=== PATIENT | female | born 1980 | race Two or more races ===

== ENCOUNTER 2020-05-08 01:10 | Emergency (ER) | payer OTHER ==
[~2020-05-08] VITALS: Ht 154.9 cm; Wt 68.0 kg
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
[2020-05-08] MEDS ORDERED: HYDROMORPHONE 1 MG/1 ML DISP.SYRIN IV ONE (01:30)
[2020-05-08] MEDS ORDERED: ONDANSETRON 4 MG/2 ML VIAL IV ONE (01:30)
[2020-05-08] MEDS ORDERED: IV NORMAL SALINE 1000 ML BAG IV ONE (01:30)
[2020-05-08] MEDS ORDERED: ONDANSETRON 4 MG/2 ML VIAL ONE (01:40)
[2020-05-08] MEDS ORDERED: HYDROMORPHONE 1 MG/1 ML DISP.SYRIN ONE (01:40)
[2020-05-08 01:56] LABS: ALANINE AMINOTRANSFERASE 37 U/L (14-59); ALKALINE PHOSPHATASE 148 U/L (50-136); ASPARTATE AMINOTRANSFERASE 19 U/L (15-37); BILIRUBIN,DIRECT 0.1 mg/dL (0.0-0.2); BILIRUBIN,TOTAL 0.3 mg/dL (0.2-1.0); CARBON DIOXIDE 27 mmol/L (21-32); CHLORIDE 101 mmol/L (98-107); CREATININE 0.8 mg/dL (0.6-1.3); GLUCOSE 140 mg/dL (74-106); LIPASE 496 U/L (73-393); POTASSIUM 4.3 mmol/L (3.5-5.1); UREA NITROGEN, BLOOD 14 mg/dL (7-18)
[2020-05-08 02:00] LABS: BASOPHILS % (AUTO) 0.3 % (0.0-2.0); EOSINOPHILS # (AUTO) 0.5 K/uL (0.0-0.7); EOSINOPHILS % (AUTO) 6.6 % (0.0-7.0); HEMATOCRIT 33.5 % (31.2-41.9); HEMOGLOBIN 11.6 g/dL (10.9-14.3); LYMPHOCYTES % (AUTO) 28.5 % (20.5-51.5); MEAN CORPUSCULAR HEMOGLOBIN 34.6 uug (24.7-32.8); MEAN CORPUSCULAR HGB CONC 35 g/dL (32.3-35.6); MEAN CORPUSCULAR VOLUME 100.2 fL (75.5-95.3); MONOCYTES # (AUTO) 0.9 K/uL (2.0-10.0); MONOCYTES % (AUTO) 12.7 % (0.0-11.0); NEUTROPHILS # (AUTO) 3.6 K/uL (1.8-8.9); NEUTROPHILS % (AUTO) 51.9 % (38.5-71.5); PLATELET COUNT (AUTO) 151 K/uL (179-408); RED BLOOD CELL COUNT(AUTO) 3.34 MIL/uL (3.63-4.92); WHITE BLOOD COUNT (AUTO) 6.9 K/uL (3.8-11.8)
--- NOTE | 2020-05-08 02:25 | NUR ---
pt to CT
--- NOTE | 2020-05-08 02:30 | NUR ---
pt back from CT
--- NOTE | 2020-05-08 02:49 | NUR ---
urine sent to lab
[2020-05-08 02:56] LABS: *BILIRUBIN,URIN NEGATIVE (NEGATIVE); *BLOOD, URINE NEGATIVE (NEGATIVE); *CLARITY,URINE CLEAR (CLEAR); *COLOR,URINE YELLOW (YELLOW); *KETONES,URINE NEGATIVE (NEGATIVE); *UROBILINOGEN,URINE 0.2 E.U./dl (NORMAL); LEUKOCYTE ESTERASE ,URINE NEGATIVE (NEGATIVE); NITRITE, URINE NEGATIVE (NEGATIVE); PH,URINE 7.5 (5.0-8.0); UGLUCOSE NEGATIVE (NEGATIVE)
--- NOTE | 2020-05-08 03:10 | NUR ---
Patient given written and verbal discharge instructions. Patient verbalizes understanding of instructions. Patient is ambulatory with steady gait. Patient states she lives in a hotel. Patient given list of available shelters in surrounding area. IV dc'd noted with tip intact. Left ER in stable condition. Addendum: 05/08/20 at 0311 by CYRUS Pt refused discharge vital signs
[2020-05-08 03:24] LABS: *AMPHETAMINE, URINE NEGATIVE (NEGATIVE); *CANNABINOID, URINE POSITIVE (NEGATIVE); *COCCAINE, URINE NEGATIVE (NEGATIVE); *OPIATE, URINE POSITIVE (NEGATIVE); *PHENCYCLIDINE SCREEN,URINE NEGATIVE (NEGATIVE)
== END 2020-05-08 03:12 | disposition home or self-care (01) ==
LOC: ER 01:18
DX: R10.2 Pelvic and perineal pain (principal); K40.90 Unilateral inguinal hernia, without obstruction or gangrene, not specified as recurrent; N20.0 Calculus of kidney; F17.210 Nicotine dependence, cigarettes, uncomplicated; M35.00 Sjogren syndrome, unspecified; E11.9 Type 2 diabetes mellitus without complications; Z90.49 Acquired absence of other specified parts of digestive tract
CPT/HCPCS: 36415; 74176; 80048; 80076; 80307; 81003; 83690; 84702; 85025; 87086; 96361; 96374; 96375; 99284; J1170; J2405; A4663

== ENCOUNTER 2020-05-10 17:25 | Emergency (ER) | payer OTHER ==
[~2020-05-10] VITALS: Ht 154.9 cm; Wt 68.0 kg
--- NOTE | 2020-05-10 17:47 | NUR ---
Patient discharged to home in stable condition with brisk steady gait. Verbal after care instructions given to patient by MD. Patient verbalized understanding and compliance of instructions. Stressed follow up with her primary doctor or return to ER for worsening s/s.
== END 2020-05-10 17:48 | disposition home or self-care (01) ==
LOC: ER 17:26
DX: E11.9 Type 2 diabetes mellitus without complications (principal); Z76.0 Encounter for issue of repeat prescription; Z79.4 Long term (current) use of insulin; F17.210 Nicotine dependence, cigarettes, uncomplicated; M35.00 Sjogren syndrome, unspecified
CPT/HCPCS: A4663

== ENCOUNTER 2020-05-17 23:46 | Emergency (ER) | payer OTHER ==
[~2020-05-17] VITALS: Ht 154.9 cm; Wt 68.0 kg
[2020-05-18 00:10] LABS: BASOPHILS % (AUTO) 0.8 % (0.0-2.0); EOSINOPHILS # (AUTO) 0.2 K/uL (0.0-0.7); HEMATOCRIT 35.2 % (31.2-41.9); HEMOGLOBIN 12.7 g/dL (10.9-14.3); LYMPHOCYTES # (AUTO) 1.8 K/uL (20.0-40.0); MEAN CORPUSCULAR HEMOGLOBIN 36.5 uug (24.7-32.8); MEAN CORPUSCULAR HGB CONC 36 g/dL (32.3-35.6); MEAN CORPUSCULAR VOLUME 101.3 fL (75.5-95.3); MONOCYTES # (AUTO) 0.8 K/uL (2.0-10.0); MONOCYTES % (AUTO) 13.3 % (0.0-11.0); NEUTROPHILS % (AUTO) 51.9 % (38.5-71.5); PLATELET COUNT (AUTO) 201 K/uL (179-408); RED BLOOD CELL COUNT(AUTO) 3.48 MIL/uL (3.63-4.92); WHITE BLOOD COUNT (AUTO) 5.9 K/uL (3.8-11.8)
[2020-05-18 00:14] LABS: CREATININE 0.9 mg/dL (0.6-1.3); POTASSIUM 2.9 mmol/L (3.5-5.1)
[2020-05-18] MEDS ORDERED: LORAZEPAM 0.5 MG TABLET PO ONE (00:15)
[2020-05-18] MEDS ORDERED: ACETAMINOPHEN 325 MG TABLET PO ONE (00:15)
[2020-05-18 00:20] LABS: BILIRUBIN,DIRECT 0.1 mg/dL (0.0-0.2); BILIRUBIN,TOTAL 0.3 mg/dL (0.2-1.0); TOTAL PROTEIN, SERUM 7.4 g/dL (6.4-8.2)
[2020-05-18 00:20] LABS: *URINE HCG, QUAL NEGATIVE (NEGATIVE)
[2020-05-18] MEDS ORDERED: LORAZEPAM 1 MG TABLET ONE (00:20)
[2020-05-18] MEDS ORDERED: ACETAMINOPHEN 325 MG TABLET ONE (00:20)
[2020-05-18] MEDS ORDERED: POTASSIUM CHLORIDE 20 MEQ TAB.PRT.SR PO ONE (00:30)
[2020-05-18] MEDS ORDERED: ACET-2154 PO (00:30)
[2020-05-18] MEDS ORDERED: POTASSIUM CHLORIDE 20 MEQ TAB.PRT.SR ONE (00:39)
[2020-05-18 00:43] VITALS: BP 116/77
--- NOTE | 2020-05-18 00:43 | NUR ---
IV removed. Catheter intact and site benign. Pressure and 4x4 gauze applied to site. No bleeding noted.
--- NOTE | 2020-05-18 00:43 | NUR ---
Patient discharged to home in stable condition. Written and verbal after care instructions given. Patient verbalizes understanding of instructions. Stressed follow up or return to ER for worsening s/s. Patient is taking a [employer] home.
== END 2020-05-18 00:44 | disposition home or self-care (01) ==
LOC: ER 23:49
DX: R07.9 Chest pain, unspecified (principal); I45.10 Unspecified right bundle-branch block; E11.9 Type 2 diabetes mellitus without complications; M35.00 Sjogren syndrome, unspecified; F17.210 Nicotine dependence, cigarettes, uncomplicated
CPT/HCPCS: 36415; 70030-TC; 71045; 84703; 85025; 93005

== ENCOUNTER 2020-07-02 00:22 | Emergency (ER) | payer MEDICAID, OTHER ==
[~2020-07-02] VITALS: Ht 154.9 cm; Wt 72.6 kg
[~2020-07-02 00:22] MED LIST: ACET-2154 PO
--- NOTE | 2020-07-02 00:49 | NUR ---
Dr. Melendez at bedside for MSE
[2020-07-02] MEDS: IV NORMAL SALINE 1000 ML BAG IV ONE (01:00)
[2020-07-02] MEDS: KETOROLAC TROMETHAMINE 30 MG INJ IVP ONE (01:11)
[2020-07-02] MEDS: METOCLOPRAMIDE HCL 10 MG/2 ML VIAL IV ONE (01:13)
[2020-07-02] MEDS ORDERED: METOCLOPRAMIDE HCL 10 MG/2 ML VIAL ONE (01:15)
[2020-07-02] MEDS ORDERED: KETOROLAC TROMETHAMINE 30 MG INJ ONE (01:15)
[2020-07-02] MEDS: diphenhydrAMINE 50 MG/1 ML VIAL IM ONE (01:15)
[2020-07-02] MEDS ORDERED: diphenhydrAMINE 50 MG/1 ML VIAL ONE (01:15)
[2020-07-02 01:32] LABS: BASOPHILS % (AUTO) 0.7 % (0.0-2.0); EOSINOPHILS # (AUTO) 0.2 K/uL (0.0-0.7); EOSINOPHILS % (AUTO) 2.8 % (0.0-7.0); HEMATOCRIT 39.3 % (31.2-41.9); HEMOGLOBIN 13.5 g/dL (10.9-14.3); LYMPHOCYTES # (AUTO) 2.1 K/uL (20.0-40.0); LYMPHOCYTES % (AUTO) 28.9 % (20.5-51.5); MEAN CORPUSCULAR HEMOGLOBIN 32.8 uug (24.7-32.8); MEAN CORPUSCULAR HGB CONC 34 g/dL (32.3-35.6); MEAN CORPUSCULAR VOLUME 95.9 fL (75.5-95.3); MONOCYTES # (AUTO) 0.8 K/uL (2.0-10.0); MONOCYTES % (AUTO) 10.7 % (0.0-11.0); NEUTROPHILS # (AUTO) 4.1 K/uL (1.8-8.9); NEUTROPHILS % (AUTO) 56.9 % (38.5-71.5); PLATELET COUNT (AUTO) 134 K/uL (179-408); WHITE BLOOD COUNT (AUTO) 7.2 K/uL (3.8-11.8)
[2020-07-02 01:36] LABS: *BILIRUBIN,URIN NEGATIVE (NEGATIVE); *BLOOD, URINE NEGATIVE (NEGATIVE); *CLARITY,URINE CLEAR (CLEAR); *COLOR,URINE YELLOW (YELLOW); *KETONES,URINE NEGATIVE (NEGATIVE); *UROBILINOGEN,URINE 0.2 E.U./dl (NORMAL); LEUKOCYTE ESTERASE ,URINE NEGATIVE (NEGATIVE); NITRITE, URINE NEGATIVE (NEGATIVE); UGLUCOSE NEGATIVE (NEGATIVE)
[2020-07-02 01:40] LABS: CREATININE 0.8 mg/dL (0.6-1.3); POTASSIUM 3.5 mmol/L (3.5-5.1)
[2020-07-02 01:45] LABS: BILIRUBIN,TOTAL 0.2 mg/dL (0.2-1.0)
[2020-07-02] MEDS ORDERED: METO-295 PO (01:56)
[2020-07-02] MEDS ORDERED: NAPR-1164 PO (01:56)
[2020-07-02] MEDS ORDERED: DIPH25CA83 PO (01:56)
--- NOTE | 2020-07-02 02:15 | NUR ---
IV removed. Catheter intact and site benign. Pressure and 4x4 gauze applied to site. No bleeding noted. Patient discharged to home in stable condition. Written and verbal after care instructions given. Patient verbalizes understanding of instructions. Stressed follow up or return to ER for worsening s/s. Patient ambulating with steady gait. Patient's family outside of ED to take patient home
[2020-07-02 02:24] VITALS: BP 108/69
== END 2020-07-02 02:15 | disposition home or self-care (01) ==
LOC: ER 00:24
DX: G43.909 Migraine, unspecified, not intractable, without status migrainosus (principal); R11.2 Nausea with vomiting, unspecified; E11.65 Type 2 diabetes mellitus with hyperglycemia; F17.210 Nicotine dependence, cigarettes, uncomplicated; M35.00 Sjogren syndrome, unspecified
CPT/HCPCS: 36415; 80053; 81003; 83690; 85025; 96361; 96374; 96375; 99284; J1200; J1885; J2765; A4663; J7030

== ENCOUNTER 2020-07-16 20:25 | Emergency (ER) | payer MEDICAID ==
[~2020-07-16] VITALS: Ht 154.9 cm; Wt 72.6 kg
[~2020-07-16 20:25] MED LIST changes: +DIPH25CA83 PO; +METO-295 PO; +NAPR-1164 PO
--- NOTE | 2020-07-16 20:56 | NUR ---
Xray at bedside
[2020-07-16] MEDS ORDERED: ACETAMINOPHEN 325 MG TABLET PO ONE (21:00)
[2020-07-16] MEDS ORDERED: LIDOCAINE 5% PATCH TD ONE ×2 (21:00→21:09)
[2020-07-16] MEDS ORDERED: KETOROLAC TROMETHAMINE 30 MG INJ IM ONE (21:00)
[2020-07-16] MEDS ORDERED: DEXAMETHASONE SOD PHOSPHATE 4 MG INJ IM ONE (21:00)
[2020-07-16 21:08] LABS: *URINE HCG, QUAL NEGATIVE (NEGATIVE)
[2020-07-16] MEDS ORDERED: ACETAMINOPHEN ES 500 MG TABLET ONE (21:08)
[2020-07-16] MEDS ORDERED: KETOROLAC TROMETHAMINE 30 MG INJ ONE (21:27)
[2020-07-16] MEDS ORDERED: DEXAMETHASONE SOD PHOSPHATE 10 MG INJ ONE (21:27)
[2020-07-16] MEDS ORDERED: TRAM50TA2 PO (21:55)
[2020-07-16] MEDS ORDERED: METH2.5T PO (21:55)
--- NOTE | 2020-07-16 22:03 | NUR ---
Patient discharged to home in stable condition. Written and verbal after care instructions given. Patient verbalizes understanding of instructions. Stressed follow up or return to ER for worsening s/s. Vss. Pt. stable, no signs of distress. pt. left with all belongings. Pt. instructed to follow up with pcp.
[2020-07-16 22:04] VITALS: BP 128/72
== END 2020-07-16 22:05 | disposition home or self-care (01) ==
LOC: ER 20:25
DX: M54.2 Cervicalgia (principal); M79.645 Pain in left finger(s); M19.042 Primary osteoarthritis, left hand; F17.210 Nicotine dependence, cigarettes, uncomplicated; M35.00 Sjogren syndrome, unspecified; E11.9 Type 2 diabetes mellitus without complications
CPT/HCPCS: 73130; 84703; 96372 ×2; 99284; J1100; J1885; A4663; A9150

== ENCOUNTER 2020-07-31 23:49 | Emergency (ER) | payer MEDICAID ==
[~2020-07-31] VITALS: Ht 154.9 cm; Wt 72.6 kg
[~2020-07-31 23:49] MED LIST changes: +METH2.5T PO; +TRAM50TA2 PO
--- NOTE | 2020-08-01 00:11 | NUR ---
Assisted Dr. Melendez as vice president sales for examination.
[2020-08-01] MEDS ORDERED: FAMC500T3 PO (00:16)
[2020-08-01] MEDS ORDERED: HYDR-3980 PO (00:17)
[2020-08-01] MEDS ORDERED: HYDROCODONE/APAP 10-325 MG TABLET PO ONE (00:30)
[2020-08-01] MEDS ORDERED: HYDROCODONE/APAP 10-325 MG TABLET ONE (00:30)
[2020-08-01] MEDS ORDERED: ACYCLOVIR 400 MG TABLET PO ONE (00:30)
[2020-08-01] MEDS ORDERED: ACYCLOVIR 200 MG CAPSULE ONE ×2 (00:31→00:43)
--- NOTE | 2020-08-01 00:41 | NUR ---
Patient vomited 1 dose of acyclivir onto floor. Medication wasted in pixis & new dose administered successfully
== END 2020-08-01 00:52 | disposition home or self-care (01) ==
LOC: ER 23:55
DX: A60.00 Herpesviral infection of urogenital system, unspecified (principal); M35.00 Sjogren syndrome, unspecified; F17.200 Nicotine dependence, unspecified, uncomplicated; E11.9 Type 2 diabetes mellitus without complications; Z79.4 Long term (current) use of insulin

== ENCOUNTER 2020-10-03 09:24 | Emergency (ER) | payer MEDICAID ==
[~2020-10-03] VITALS: Ht 154.9 cm; Wt 72.6 kg
[~2020-10-03 09:24] MED LIST changes: +FAMC500T3 PO; +HYDR-3980 PO
--- NOTE | 2020-10-03 09:44 | NUR ---
[email or web address], medical screening exam in progress
[2020-10-03] MEDS ORDERED: DIAZ2TAB3 PO (09:47)
--- NOTE | 2020-10-03 09:52 | NUR ---
Patient discharged to home in stable condition with brisk steady gait. Written and verbal after care instructions given to patient. Patient verbalized understanding & compliance of instructions. Stressed follow up with her primary doctor and a psychiatrist/mental health provider or return to ER for worsening s/s.
== END 2020-10-03 09:52 | disposition home or self-care (01) ==
LOC: ER 09:24
DX: F41.9 Anxiety disorder, unspecified (principal); F31.9 Bipolar disorder, unspecified; F17.210 Nicotine dependence, cigarettes, uncomplicated; M35.00 Sjogren syndrome, unspecified; E11.9 Type 2 diabetes mellitus without complications; Z86.69 Personal history of other diseases of the nervous system and sense organs
CPT/HCPCS: A4663

== ENCOUNTER 2021-01-10 22:24 | Emergency (ER) | payer MEDICAID ==
[~2021-01-10] VITALS: Ht 154.9 cm; Wt 74.8 kg
[~2021-01-10 22:24] MED LIST changes: +DIAZ2TAB3 PO
--- NOTE | 2021-01-10 22:43 | NUR ---
Dr Bueno into eval patient.
[2021-01-10] MEDS ORDERED: LORA-259 PO (22:50)
--- NOTE | 2021-01-10 22:53 | NUR ---
Patient discharged to home in stable condition. Written and verbal after care instructions given. Patient verbalizes understanding of instructions. Stressed follow up or return to ER for worsening s/s.
== END 2021-01-10 22:54 | disposition home or self-care (01) ==
LOC: ER 22:24
DX: F41.9 Anxiety disorder, unspecified (principal); F17.210 Nicotine dependence, cigarettes, uncomplicated; M35.00 Sjogren syndrome, unspecified; E11.9 Type 2 diabetes mellitus without complications
CPT/HCPCS: A4663

== ENCOUNTER 2021-01-16 01:10 | Emergency (ER) | payer MEDICAID ==
[~2021-01-16] VITALS: Ht 180.3 cm; Wt 79.4 kg
[~2021-01-16 01:10] MED LIST changes: +LORA-259 PO
--- NOTE | 2021-01-16 01:27 | NUR ---
PT BIB [facility] FROM HOME C/O DIZZINESS AND NAUSEA, NO VOMITTING. NO SOB OR LABORED BREATHING, AFEBRILE. DENIES CP/PRESSURE. CLEAR SPEECH, COMPLETE SENTENCES.
--- NOTE | 2021-01-16 02:00 | NUR ---
DR. BASURTO AT BEDSIDE, MSE IN PROGRESS.
[2021-01-16] MEDS ORDERED: IV NS 1000 ML 1,000 ML IV ONE (02:15)
--- NOTE | 2021-01-16 02:29 | NUR ---
PT TAKEN DOWN FOR CT/XRAYS.
--- NOTE | 2021-01-16 03:00 | NUR ---
PT RETURNED FROM CT, STABLE CONDITION.
--- NOTE | 2021-01-16 03:49 | NUR ---
Patient discharged to home in stable condition. Steady gait. Denies any dizziness. No n/v/d. Written and verbal after care instructions given. Patient verbalizes understanding of instructions. Stressed follow up or return to ER for worsening s/s. Steady gait. Picked up by family.
[2021-01-16 03:50] VITALS: BP 122/79
== END 2021-01-16 03:45 | disposition home or self-care (01) ==
LOC: ER 01:11
DX: R42 Dizziness and giddiness (principal); R53.1 Weakness; F17.210 Nicotine dependence, cigarettes, uncomplicated; M35.00 Sjogren syndrome, unspecified; E11.9 Type 2 diabetes mellitus without complications
CPT/HCPCS: 70450; 72125; 73120; 73560; A4663; J7030